=== PATIENT | female | born 1975 | race Caucasian/White ===

== ENCOUNTER 2017-12-09 13:39 | Emergency (ER) | payer SELFPAY ==
[~2017-12-09] VITALS: Ht 160 cm; Wt 73.0 kg
[2017-12-09 13:44] VITALS: BP 117/69
--- NOTE | 2017-12-09 13:56 | NUR ---
PATIENT PRESENTS TO ED WITH COMPLAINTS OF ABNORMAL LABS. PATIENT STATES SHE WAS CALLED BY HER CLINIC THAT TOLD HER TO GO TO THE ER BECAUSE SHE NEEDED A BLOOD TRANSFUSION, "BLOOD IS LOW." DENIES V/D; SKIN IS PALE AND DRY; AAOX4 WITH EVEN AND STEADY GAIT; LUNGS CLEAR BL; HR EVEN AND REGULAR; PT DENIES ANY FEVER, CP, SOB, OR COUGH AT THIS TIME; PATIENT STATES PAIN OF 0/10 AT THIS TIME; VSS; PATIENT POSITIONED FOR COMFORT; HOB ELEVATED; BEDRAILS UP X1; BED DOWN. ER MD MADE AWARE OF PT STATUS.
[2017-12-09 13:57] VITALS: BP 117/69
--- NOTE | 2017-12-09 14:19 | NUR ---
PATIENT LEFT FACILITY WITHOUT BEING SEEN BY DOCTOR.
== END 2017-12-09 14:19 | disposition left against medical advice (07) ==
LOC: MED 13:39
DX: R79.89 Other specified abnormal findings of blood chemistry (principal); D64.9 Anemia, unspecified; Z53.21 Procedure and treatment not carried out due to patient leaving prior to being seen by health care provider